=== PATIENT | female | born 1990 | race Caucasian/White ===

== ENCOUNTER 2016-07-13 15:31 | Emergency (ER) | payer BC ==
[2016-07-13 14:08] LABS: PREGNANCY-SERUM NEGATIVE (NEGATIVE)
[2016-07-13 14:33] LABS: ANION GAP 10 mmol/L (0-20); BLOOD UREA NITROGEN 15 mg/dl (6-24); CARBON DIOXIDE-VENOUS 29 mmol/L (22-32); CHLORIDE 107 mmol/l (96-110); CREATININE 0.75 mg/dl (0.50-1.10); GLUCOSE 82 mg/dL (70-110); SODIUM 142 mmol/L (135-145); eGFR VALUE FOR BLACK >90 mL/Min
[~2016-07-13 15:31] MED LIST: NAPROSYN500 M1 PO; ZOLOFT50 M1 PO
== END 2016-07-13 15:35 ==
LOC: EDMED 15:31
PROVIDERS: Physician Assistant
DX: M94.0 Chondrocostal junction syndrome [Tietze] (principal); F17.210 Nicotine dependence, cigarettes, uncomplicated
CPT/HCPCS: Q9967